=== PATIENT | male | born 1965 | race Caucasian/White ===

== ENCOUNTER 2018-08-28 14:22 | Emergency (ER) | payer OTHER ==
[~2018-08-28] VITALS: Ht 180.3 cm; Wt 108.0 kg
[2018-08-28] MEDS ORDERED: ATACAND32 MG (14:38)
[2018-08-28] MEDS ORDERED: TRICOR48 MG (14:38)
== END 2018-08-28 17:15 | disposition home or self-care (01) ==
LOC: ER 14:22
DX: R07.89 Other chest pain (principal)

== ENCOUNTER → 2021-07-22 08:00 | Outpatient (CLI) | payer OTHER ==
[~2021-07-22 08:00] MED LIST: ATACAND32 MG; TRICOR48 MG
== END | disposition home or self-care (01) ==
LOC: PPH VACUNA 08:00
PROVIDERS: ATTEND Emergency Medicine Pediatric Emergency Medicine
DX: Z23 Encounter for immunization (principal)